=== PATIENT | female | born 1985 | race Caucasian/White ===

== ENCOUNTER 2019-08-17 12:42 | Emergency (ER) | payer MEDICAID, OTHER ==
[~2019-08-17] VITALS: Ht 165.1 cm; Wt 77.1 kg
[2019-08-17 15:32] VITALS: BP 154/104
[2019-08-17] MEDS ORDERED: cefTRIAXone SOD 1,000 MG VL IM ONE (16:00)
[2019-08-17] MEDS ORDERED: KETOROLAC TROMETH 60MG/2ML VIAL IM ONE (16:00)
[2019-08-17] MEDS ORDERED: LIDOCAINE 1% HCL (LOCAL ANESTH.) INJ 20ML MDV ONE (16:22)
== END 2019-08-17 16:38 | disposition home or self-care (01) ==
LOC: ER 12:42
DX: L03.011 Cellulitis of right finger (principal); R51 Headache; F17.210 Nicotine dependence, cigarettes, uncomplicated
CPT/HCPCS: 96372; 99284; J0696; J1885; J2001

== ENCOUNTER 2019-08-18 12:30 | Emergency (ER) | payer MEDICAID ==
[~2019-08-18] VITALS: Ht 165.1 cm; Wt 77.1 kg
[2019-08-18] MEDS ORDERED: VANCOMYCIN 1GM/250ML 250 ML IV ONE (14:00)
[2019-08-18] MEDS ORDERED: cefTRIAXone 1GM/50ML D5W 50 ML IV ONE (14:00)
[2019-08-18 15:45] LABS: Basophils # (auto) 0.1 uL; Basophils % (auto) 1.4 % (0.0-2.0); Eosinophils # (auto) 0.3 uL; Eosinophils % (auto) 3.5 % (0.0-7.0); Hemoglobin 14.8 g/dL (12.2-16.2); Lymphocytes # (auto) 2.8 uL; Lymphocytes % (auto) 31.1 % (10.0-50.0); Mean Corpuscular Hgb Conc. 33.6 g/dL (32.0-36.0); Mean Corpuscular Volume 83.1 fL (80.0-100.0); Monocytes # (auto) 0.8 uL; Monocytes % (auto) 8.4 % (0.0-12.0); Neutrophils # (auto) 5.1 uL; Neutrophils % (auto) 55.6 % (37.0-80.0); Nucleated Red Blood Cells % 0.6 %; Platelet Count (auto) 204 10^3/uL (140-450); Red Blood Cells 5.29 10^6/uL (4.0-5.20); White Blood Cell 9.1 10^3/uL (4.4-10.8)
[2019-08-18 16:02] LABS: Albumin 3.4 g/dL (3.4-5.0); Calcium 8.2 mg/dL (8.5-10.1); Potassium 3.8 mmol/L (3.5-5.1)
[2019-08-18 16:06] LABS: BUN/Creatinine Ratio 9.1; Bilirubin, Total 0.2 mg/dL (0.2-1.0); Total Protein 7.4 g/dL (6.4-8.2)
[2019-08-18] MEDS ORDERED: SODIUM CHLORIDE 0.9% 1,000 ML IV ONE (16:45)
[2019-08-18] MEDS ORDERED: ACETAMINOPHEN 325 MG TAB PO ONE (17:15)
[2019-08-18 18:10] LABS: Urine Bacteria NONE SEEN /hpf (None Seen); Urine Blood Negative /uL (Negative); Urine Mucus FEW (None Seen); Urine WBC 2 /hpf (0 - 5)
[2019-08-18 18:19] LABS: Amphetamine Screen, Urine POSITIVE (NEGATIVE); Barbiturate Scree,Urine NEGATIVE (NEGATIVE); Benzodiazephine Screen, Urine NEGATIVE (NEGATIVE); Cocaine Screen, Urine NEGATIVE (NEGATIVE); Opiate Scree,Urine NEGATIVE (NEGATIVE); Phencyclidine Screen, Urine NEGATIVE (NEGATIVE)
[2019-08-18 18:27] LABS: Cannabinoid Screen, Urine POSITIVE (NEGATIVE)
[2019-08-18 22:38] VITALS: BP 117/64
== END 2019-08-18 22:47 | disposition home or self-care (01) ==
LOC: ER 12:30
DX: L03.113 Cellulitis of right upper limb (principal); F15.10 Other stimulant abuse, uncomplicated; F12.10 Cannabis abuse, uncomplicated; F17.210 Nicotine dependence, cigarettes, uncomplicated
CPT/HCPCS: 36415; 73200; 80053; 80307; 81001; 84702; 85025; 87205; 96365; 96368; 99284; J0696; J3370; J7030

== ENCOUNTER 2021-10-17 17:06 | Emergency (ER) | payer MEDICAID ==
[~2021-10-17] VITALS: Ht 165.1 cm; Wt 90.7 kg
[2021-10-17 17:22] VITALS: BP 136/93
[2021-10-17 17:54] LABS: Urine Bacteria NONE SEEN /hpf (None Seen); Urine Blood Negative /uL (Negative); Urine Mucus FEW (None Seen); Urine Specific Gravity 1.021 (1.001-1.035); Urine WBC 2 /hpf (0 - 5)
[2021-10-17] MEDS ORDERED: IBU600T PO (17:55)
[2021-10-17] MEDS ORDERED: KETOROLAC TROMETH 60MG/2ML VIAL IM ONE (18:30)
[2021-10-17] MEDS ORDERED: HYDROcodone-ACET 10/325MG TAB PO ONE (18:30)
== END 2021-10-17 20:52 | disposition home or self-care (01) ==
LOC: ER 17:06
DX: R10.31 Right lower quadrant pain (principal); F17.210 Nicotine dependence, cigarettes, uncomplicated; Z79.1 Long term (current) use of non-steroidal anti-inflammatories (NSAID)
CPT/HCPCS: 74176; 81001; 96372; 99284; J1885